=== PATIENT | male | born 1995 | race Two or more races ===

== ENCOUNTER 2019-03-15 16:23 | Emergency (ER) | payer MEDICAID, OTHER ==
[~2019-03-15] VITALS: Ht 177.8 cm; Wt 93.0 kg
[~2019-03-15 16:23] MED LIST: NKM
--- NOTE | 2019-03-15 16:45 | NUR ---
ED Nurse Note: ice pack applied.
--- NOTE | 2019-03-15 16:47 | NUR ---
ED Nurse Note: pt walked in c/o right hand 2nd finger, pt states he accidentally jammed his finger on the door. noted lac on right index finger. cms intact, cap refill <3sec, will cont monitor. scant bleeding noted at this time.
[2019-03-15 16:49] VITALS: BP 128/75
[2019-03-15] MEDS ORDERED: NAPROXEN500 M1 ORAL (16:54)
--- NOTE | 2019-03-15 16:55 | Emergency Room Report ---
History of Present Illness General Chief Complaint: Upper Extremity Injury Source: Patient Present Illness HPI 23-year-old male who complains of injury to index finger. States that the door closed on his finger causing there to be a cut. States he has full range of motion but is limited painful. States he is worried about the cut that on his finger wants to know if he needs to have laceration repair. He is not up-to- date on his tetanus shot. Patient denies any numbness, tingling, pressure, paralysis, cyanosis, bruising, loss of sensation, or loss of range of motion. Allergies: Coded Allergies: NO KNOWN ALLERGIES (Unverified Allergy, Unknown, 12/07/15) Patient History Past Medical History: see triage record Past Surgical History: none Pertinent Family History: none Reviewed Nursing Documentation: PMH: Agreed; PSxH: Agreed Nursing Documentation-PMH Past Medical History: No Stated History Review of Systems All Other Systems: negative except mentioned in HPI Physical Exam Vital Signs Date Time Temp Pulse Resp B/P (MAP) Pulse Ox O2 Delivery O2 Flow Rate FiO2 03/15/19 16:38 99.0 71 16 128/75 99 Room Air Sp02 EP Interpretation: reviewed, normal General Appearance: no apparent distress, alert, GCS 15, non-toxic Head: normocephalic, atraumatic Eyes: bilateral eye normal inspection, bilateral eye PERRL ENT: hearing grossly normal, normal pharynx, no angioedema, normal voice Respiratory: no respiratory distress Cardiovascular #1: normal peripheral pulses, regular rate, rhythm Musculoskeletal: digits/nails normal, normal range of motion Neurologic: alert, oriented x3, responsive, motor strength/tone normal, sensory intact, speech normal Psychiatric: judgement/insight normal, memory normal, mood/affect normal, no suicidal/homicidal ideation Skin: normal color, no rash, warm/dry, well hydrated, laceration - 2cm superficial laceration to frankel aspect of right index finger Procedures Laceration/Wound Repair Laceration/Wound Repair : Wound's Depth, Shape: superficial Wound Length (cm): 2 Wound Explored: clean Irrigated w/ Saline (ccs): 250 Betadine Prep?: Yes Wound Repaired With: Dermabond Medical Decision Making PA Attestation Dr. Christine is my supervising physician with whom patient management has been discussed with. Diagnostic Impression: Primary Impression: Laceration ER Course 23-year-old male presents with laceration to his right index finger. On exam the laceration is very superficial. There is no signs of subungual hematoma. The laceration does not need to be repaired by sutures and dermabond was applied. The laceration was irrigated and cleaned and a Band-Aid was placed the patient was given a tetanus shot prior to discharge. At this time the patient appears stable for discharge home without any emergent exam findings. Will provide printed patient care instructions, and any necessary prescriptions. Care plan and follow up instructions have been discussed with the patient prior to discharge. Last Vital Signs Date Time Temp Pulse Resp B/P (MAP) Pulse Ox O2 Delivery O2 Flow Rate FiO2 03/15/19 16:38 99.0 71 16 128/75 99 Room Air Disposition: HOME, SELF-CARE Condition: Stable Scripts Naproxen* (NAPROXEN*) 500 Mg Tablet.dr 500 MG ORAL TWICE A DAY for 10 Days, #20 TAB Prov: Ayanna Arrieta 03/15/19 Patient Instructions: Laceration Care, Adult Additional Instructions: Keep wound clean and dry. Avoid sun exposure to minimize scarring. Patient advised that they can take a shower or bath, but be sure to pat the area dry with a towel afterward. Patient should come back sooner if they experience any red areas that get bigger, more swollen, have pus draining from wound, or if the site becomes more painful. Ayanna Arrieta Mar 15, 2019 16:55
[2019-03-15] MEDS: Tetanus/Diptheria/Pertussis IM ONE (17:00)
[2019-03-15 17:09] VITALS: BP 128/75
--- NOTE | 2019-03-15 17:09 | NUR ---
ED Nurse Note: pt cleared to be d/c per ER provider, dermabond applied by provider, pt discharge and aftercare instruction provided w/ prescription, pt education done via discussion and handout, pt advised to follow up with pcp or return to ed if changes in condition, pt verbalized understanding and agrees with plan, vss, ambulatory w/ steady gait, left w/ all belongings, ID band removed.
== END 2019-03-15 17:10 | disposition home or self-care (01) ==
LOC: EMR 17:10
DX: S61.210A Laceration without foreign body of right index finger without damage to nail, initial encounter (principal); W45.8XXA Other foreign body or object entering through skin, initial encounter; Y92.9 Unspecified place or not applicable; Z23 Encounter for immunization
CPT/HCPCS: 90471; 90715; 99283